=== PATIENT | female | born 2000 | race Hispanic/Latino ===

== ENCOUNTER 2021-02-16 17:19 | Emergency (ER) | payer OTHER, MEDICAID, SELFPAY ==
[2021-02-16 17:35] VITALS: BP 121/75; PULSE 98; RESP 16; TEMP 36.4; O2SAT 99; BMI 32.2
--- NOTE | 2021-02-16 17:57 | DI.RAD.S_ITS ---
PROCEDURE: XR ANKLE RT MIN 3V INDICATIONS: swelling TECHNIQUE: 3 views of the ankle were acquired. COMPARISON: None. FINDINGS: Bones: No fractures or dislocations. Ankle mortise is normally aligned. No suspicious bony lesions. Soft tissues: No tibiotalar joint effusion. Achilles tendon appears normal. Lateral ankle soft tissue swelling is seen. IMPRESSION: Mild lateral ankle soft tissue swelling. No gross acute ankle fracture or dislocation. Dictated by: Xu Sheriff M.D. on 02/16/2021 at 18:24 Approved by: Xu Sheriff M.D. on 02/16/2021 at 18:24
--- NOTE | 2021-02-16 18:20 | ED_ITS ---
HPI - Extremity Injury (Lower) General Chief Complaint: Extremity Injury, Lower Stated Complaint: twisted rt ankle Time Seen by Provider: 02/16/21 18:05 Source: patient Mode of arrival: Wheelchair Limitations: no limitations History of Present Illness HPI Narrative: 20-year-old female nonsmoker with noncontributory medical history presents with her significant other and a chief complaint of an accidental injury to her right ankle. She had stepped awkwardly and inverted her ankle and over the course of the day has developed increasing pain and swelling. She now cannot weightbear due to this pain. She denies any numbness, tingling or weakness. She denies any knee or hip pain or injury. She denies any history of ankle injury. Her pain is worse with ambulation and improves with rest MD complaint: ankle injury Onset (ago): hour(s) Type of Injury: inversion Place: street/outdoors Severity: moderate Relieving factors: rest Exacerbating factors: weight bearing, movement and palpation Context: walking Associated symptoms: swelling and unable to bear weight Other symptoms: none Treatments prior to arrival: cold therapy Related Data Allergies Allergy/AdvReac Type Severity Reaction Status Date / Time hydrocodone AdvReac Verified 02/16/21 17:35 Review of Systems Constitutional Constitutional: Denies chills, Denies fatigue, Denies fever(s), Denies frequent falls, Denies lethargy and Denies weakness Eyes Eyes: Denies change in vision, Denies eye discharge, Denies irritation and Denies loss of vision ENT Ears, Nose, Mouth, and Throat: Denies change in voice, Denies dizziness, Denies neck pain, Denies sore throat and Denies throat swelling Cardiovascular Cardiovascular: Denies chest pain, Denies irregular heart rhythm, Denies lightheadedness, Denies palpitations, Denies dyspnea, Denies dyspnea on exertion and Denies orthopnea Respiratory Respiratory: Denies cough, Denies dyspnea, Denies dyspnea on exertion and Denies wheezing Gastrointestinal Gastrointestinal: Denies abdominal pain, Denies change in bowel habits, Denies diarrhea, Denies nausea and Denies vomiting Musculoskeletal Musculoskeletal: Reports arthralgias, Reports joint swelling, Reports limited range of motion, Denies neck pain and Denies numbness Integumentary/Breasts Skin/Breast: Denies pruritus, Denies erythema, Denies rash and Denies wounds Neurologic Neurologic: Denies behavioral changes, Denies confusion, Denies dizziness, Denies frequent falls, Denies loss of vision, Denies numbness and Denies weakness Psychiatric Psychiatric: Denies anxiety, Denies behavioral changes, Denies confusion, Denies depression, Denies homicidal ideation and Denies suicidal ideation Endocrine Endocrine: Denies fatigue, Denies flushing and Denies palpitations Hematologic/Lymphatic Hematologic/Lymphatic: Denies easy bruising Allergic/Immunologic Allergic/Immunologic: Denies urticaria, Denies throat swelling and Denies wheezing Patient History Social History Smoking Status: Never smoker Smoking Status: Never smoker Substance Use Type: does not use Exam Narrative Exam Narrative: GEN: AOx3 and in mild distress EYES: Pupils are equal, round, and reactive to light and accommodation. Extraoccular muscles are intact bilaterally. There is no subconjunctival hemorrhage or exudate. CHEST: Lungs are clear to auscultation bilaterally and free of wheezes, rales, or rhonchi. Heart rate is regular rhythm, there are no murmurs, clicks, rubs, or gallops. There is no chest wall tenderness. ABD: Abdomen is soft and nontender. There is no guarding or rebound. Bowel sounds are normal in all 4 quadrants. There is no mass or organomegaly. EXT: Full but painful range of motion of the right ankle without evidence of ligamentous instability. She does have some swelling and tenderness primarily surrounding the lateral malleolus. This injury is closed, isolated and neurovascularly intact. SKIN: Warm, pink, and dry. No erythema or rash Initial Vital Signs Initial Vital Signs: Vital Signs Temperature 97.5 F L 02/16/21 17:35 Pulse Rate 98 H 02/16/21 17:35 Respiratory Rate 16 02/16/21 17:35 Blood Pressure 121/75 02/16/21 17:35 Pulse Oximetry 99 02/16/21 17:35 Procedures Orthopedic Splinting/Casting Injury #1: Side: right Lower Extremity Injury Location: ankle Lower Extremity Immobilizer: AirCast Other Orthopedic Equipment: crutches Post splinting neuro exam: intact Post splinting vascular exam: intact Placed by: Nursing Course Orders Ordered: ED Orders 02/16/21 17:57 XR ankle RT min 3V Stat Vital Signs Vital signs: Vital Signs - 8 hr 02/16/21 17:35 Temperature 97.5 F L Pulse Rate 98 H Respiratory Rate 16 Blood Pressure 121/75 Pulse Oximetry 99 MDM - Extremity Injury (Lower) Imaging Data Extremity x-ray #1: Radiologist's Impression: [address] [id number] ReportSigned Patient: Katy Bills CMR#: [id number]: [id number]:[id number]/Sex: 20 / FDate of Service: 02/16/21Loc: EDAccession Number: [id number] Procedure: XR ankle RT min 3V Ordering Provider: Roddy Finnegan D.O. PROCEDURE: XR ANKLE RT MIN 3V INDICATIONS: swelling TECHNIQUE: 3 views of the ankle were acquired. COMPARISON: None. FINDINGS: Bones: No fractures or dislocations. Ankle mortise is normally aligned. No suspicious bony lesions. Soft tissues: No tibiotalar joint effusion. Achilles tendon appears normal. Lateral ankle soft tissue swelling is seen. IMPRESSION: Mild lateral ankle soft tissue swelling. No gross acute ankle fracture or dislocation. Dictated by: Xu Sheriff M.D. on 02/16/2021 at 18:24 Discharge Plan Departure Patient Disposition: Home Clinical Impression: Ankle sprain and strain Instructions: DI for Ankle Sprain Activity Restrictions/Additional Instructions: *You have been diagnosed with [right ankle sprain, physical exam and x-ray are reassuring. No evidence of fracture or dislocation] *What to do: *Please take tylenol or motrin for pain *Please follow up with your primary care provider in 2-3 days, call for an appointment. Let them know you were seen in the Emergency Department and that we ask that you be seen in follow up. We will electronically transmit a record of today's note if your PCP is in our system *No weight bearing until follow up *If you do not have a primary care provider please contact the [facility] Resource line at [phone]. They will ask some questions about your medical history and help get you set up with a doctor in the community. *Return to Emergency Department if you should have any new, worsening or concerning symptoms, such as [fever greater than 101 F, shaking chills, worsening pain, persistent vomiting or other bothersome symptoms] Referrals: [facility] [Outside] Geovanni Dempsey MD [Physician] -
== END 2021-02-16 18:48 | disposition home or self-care (01) ==
PROVIDERS: Emergency Provider Emergency Medicine
DX: S93.401A Sprain of unspecified ligament of right ankle, initial encounter (principal); S96.911A Strain of unspecified muscle and tendon at ankle and foot level, right foot, initial encounter; X50.1XXA Overexertion from prolonged static or awkward postures, initial encounter
CPT/HCPCS: 73610; 99283